=== PATIENT | male | born 1940 | race African-American/Black ===

== ENCOUNTER 2016-10-22 09:13 | Day surgery (SDC) | payer MEDICARE, MEDICAID ==
[~2016-10-22] VITALS: Ht 172.7 cm; Wt 90.7 kg
[~2016-10-22 09:13] MED LIST: ABAT250V; DILT-32; DOXA2TAB; GLIM2TAB2; HYDR25TA; LOSA100T11; METH2.5T; OMEP20TA15; SIMV20TA2; TADA20TA
[2016-10-22] MEDS ORDERED: ASPI-1035 PO (10:15)
[2016-10-22] MEDS ORDERED: FOLI-43 PO (10:15)
[2016-10-22] MEDS ORDERED: TIOT18CA3 INH (10:15)
[2016-10-22] MEDS ORDERED: P50 PO (10:15)
[2016-10-22] MEDS ORDERED: DIPH25CA83 PO (10:15)
[2016-10-22] MEDS ORDERED: HEPARIN SODIUM 1,000 UNIT/1ML VIAL IV ONE (11:23)
[2016-10-22] MEDS ORDERED: MIDAZOLAM HCL 2 MG/2 ML VIAL ONE (11:23)
[2016-10-22] MEDS ORDERED: IODIXANOL 320MG/ML 100 ML BOTTLE IV ONE (11:24)
[2016-10-22] MEDS ORDERED: DIPHENHYDRAMINE 50MG/ML VIAL ONE (11:24)
[2016-10-22] MEDS ORDERED: FENTANYL CITRATE/PF 50MCG/ML 2ML VIAL ONE (11:24)
[2016-10-22] MEDS ORDERED: FAMOTIDINE 20MG/2ML VIAL IV ONE (11:25)
[2016-10-22] MEDS ORDERED: LIDOCAINE HCL 1% 20ML VIAL (Pyxis) INJ ONE (11:25)
[2016-10-22] MEDS ORDERED: ACETAMINOPHEN 325MG TABLET PO PRN (12:15)
[2016-10-22] MEDS ORDERED: ONDANSETRON HCL 4MG/2ML VIAL IV PRN (12:15)
== END 2016-10-22 15:00 | disposition home or self-care (01) ==
LOC: CCL 09:13
PROVIDERS: ATTEND Specialist
DX: I25.10 Atherosclerotic heart disease of native coronary artery without angina pectoris (principal)
CPT/HCPCS: 93458; C1769; C1893; J1200; J1644; J2250; J3010; J3490; Q9967

== ENCOUNTER 2017-09-05 14:44 | Emergency (ER) | payer MEDICARE, MEDICAID ==
[~2017-09-05] VITALS: Ht 170.2 cm; Wt 89.0 kg
[~2017-09-05 14:44] MED LIST changes: +ASPI-1159 PO; -DILT-32; +DILT240C62; +DIPH25CA83 PO; +FOLI-43 PO; -LOSA100T11; +LOSA100T3; +P50 PO; +TIOT18CA3 INH
[2017-09-05 14:46] VITALS: BP 132/58
== END 2017-09-05 16:36 | disposition left against medical advice (07) ==
LOC: ER 14:44
DX: Z53.21 Procedure and treatment not carried out due to patient leaving prior to being seen by health care provider (principal)

== ENCOUNTER 2019-06-21 22:28 | Emergency (ER) | payer MEDICARE, BC, MEDICAID ==
[~2019-06-21] VITALS: Ht 172.7 cm; Wt 87.0 kg
[~2019-06-21 22:28] MED LIST changes: -ASPI-1159 PO; +ASPI-1497 PO; -DILT240C62; +DILT240C96; -GLIM2TAB2; +GLIM2TAB30
[2019-06-22 01:47] VITALS: BP 155/66
== END 2019-06-22 01:49 | disposition home or self-care (01) ==
LOC: ER 22:28
DX: T38.3X1A Poisoning by insulin and oral hypoglycemic [antidiabetic] drugs, accidental (unintentional), initial encounter (principal); E11.9 Type 2 diabetes mellitus without complications; I10 Essential (primary) hypertension; E78.00 Pure hypercholesterolemia, unspecified; N40.0 Benign prostatic hyperplasia without lower urinary tract symptoms; Z87.891 Personal history of nicotine dependence; Z98.890 Other specified postprocedural states; Z88.6 Allergy status to analgesic agent; Z91.041 Radiographic dye allergy status; Y92.018 Other place in single-family (private) house as the place of occurrence of the external cause
CPT/HCPCS: 82962; 99281

== ENCOUNTER 2019-08-20 11:08 | Emergency (ER) | payer MEDICARE, MEDICAID ==
[~2019-08-20] VITALS: Ht 170.2 cm; Wt 77.0 kg
[2019-08-20 12:13] VITALS: BP 120/75
== END 2019-08-20 12:13 | disposition home or self-care (01) ==
LOC: ER 11:23
DX: L03.114 Cellulitis of left upper limb (principal); E11.9 Type 2 diabetes mellitus without complications; E78.00 Pure hypercholesterolemia, unspecified; I10 Essential (primary) hypertension; Z79.899 Other long term (current) drug therapy
CPT/HCPCS: 99283

== ENCOUNTER 2019-12-07 12:25 | Emergency (ER) | payer MEDICARE, MEDICAID ==
[~2019-12-07] VITALS: Ht 170.2 cm; Wt 84.0 kg
[2019-12-07 12:57] VITALS: BP 136/63
== END 2019-12-07 16:10 | disposition left against medical advice (07) ==
LOC: ER 12:25
DX: Z53.21 Procedure and treatment not carried out due to patient leaving prior to being seen by health care provider (principal)
CPT/HCPCS: 82962